=== PATIENT | female | born 1935 | race Caucasian/White ===

== ENCOUNTER → 2017-01-03 | Outpatient (CLI) | payer MEDICARE, BC ==
--- NOTE | 2017-01-03 14:45 | RAD ---
DATE: 01/03/2017 EXAM: DIGITAL SCREEN BILAT W/CAD HISTORY: Routine screening COMPARISON: 12/29/2015 This study was interpreted with the benefit of Computerized Aided Detection (CAD). FINDINGS: Breast Density: HETERO The breast parenchyma Is heterogeneouslyy dense, which could reduce sensitivity of mammography. Breast parenchyma level C. Grouped microcalcifications identified in the right breast best seen on the MLO view just superior to the right retroareolar region. There is a group microtest cases identified in the left upper breast best seen on the MLO view. IMPRESSION: Grouped microcalcifications identified in the right breast and in the left breast. Recommend spot compression magnification views of the right breast and left breast in MLO views. An ML view is recommended. BI-RADS CATEGORY: 0 INCOMPLETE: NEEDS ADDITIONAL IMAGING EVALUATION AND/OR PRIOR MAMMOGRAMS FOR COMPARISON. RECOMMENDED FOLLOW-UP: ADD ADDITIONAL IMAGING PQRS compliance statement: Patient information was entered into a reminder system with a target due date immediate recall for the next mammogram. Mammography is a sensitive method for finding small breast cancers, but it does not detect them all and is not a substitute for careful clinical examination. A negative mammogram does not negate a clinically suspicious finding and should not result in delay in biopsying a clinically suspicious abnormality. "Our facility is accredited by the [employer] Mammography Program."
== END | disposition home or self-care (01) ==
LOC: MAMMO 10:55
PROVIDERS: ATTEND Internal Medicine
DX: Z12.31 Encounter for screening mammogram for malignant neoplasm of breast (principal)
CPT/HCPCS: G0202; 77067

== ENCOUNTER → 2017-01-14 | Outpatient (CLI) | payer MEDICARE, BC ==
--- NOTE | 2017-01-14 09:15 | RAD ---
EXAM: Bilateral lower extremity arterial Doppler. HISTORY: Left lower extremity pain, hypertension, smoking history. COMPARISON: None. FINDINGS: Grayscale and Doppler analysis of the lower extremity deep venous systems was performed. On the right, there are biphasic waveforms throughout. There are no focally elevated velocities. On the left, there are biphasic waveforms throughout. There are no focally elevated velocities. There is a solid-appearing mass within the popliteal fossa on the left measuring 4.6 x 2.3 x 2.2 cm. There is internal flow on Doppler. A feeding vessel appears to arise from the proximal anterior tibial artery. IMPRESSION: 1. A solid-appearing mass in the left popliteal fossa measures 4.6 cm. A soft tissue mass is the primary concern based on this appearance, and is favored over a calcaneal Bethea cyst or an aneurysm. MRI with/without contrast is recommended for further evaluation. MRA series could be included to further define its relationship with the vasculature. 2. Biphasic waveforms throughout both lower extremities suggests mild proximal stenosis.
--- NOTE | 2017-01-14 10:10 | RAD ---
DATE: 01/14/2017. EXAM: DIGITAL DIAGNOSTIC BILATERAL. HISTORY: Bilateral microcalcifications. Additional views are requested. COMPARISON: 01/03/2017. This study was interpreted with the benefit of Computerized Aided Detection (CAD). FINDINGS: The breast parenchyma is heterogeneously dense, which could reduce sensitivity of mammography. Breast parenchyma level C.. On the right, the calcifications of concern appear round/coarse and benign. More superiorly on the right, there is a suggested cluster of small punctate or round calcifications that are not well seen on the CC view and are likely superimposed. Other right-sided calcifications are scattered and appear benign. On the left, there are 2 regions of punctate calcifications just deep to the nipple and lateral to the nipple on the CC view, and superior on the MLO view. These have correlates dating back to at least 2014 given differences in magnification and motion, and benignity is favored. Other round or coarse calcifications appear benign. BI-RADS CATEGORY: 2 BENIGN FINDING(S). RECOMMENDED FOLLOW-UP: 12M 12 MONTH FOLLOW-UP. Ongoing follow-up of punctate left calcifications superolaterally is recommended. PQRS compliance statement: Patient information was entered into a reminder system with a target due date 01/14/2018 for the next mammogram. Mammography is a sensitive method for finding small breast cancers, but it does not detect them all and is not a substitute for careful clinical examination. A negative mammogram does not negate a clinically suspicious finding and should not result in delay in biopsying a clinically suspicious abnormality. "Our facility is accredited by the [employer] Mammography Program."
== END | disposition home or self-care (01) ==
LOC: US 09:33
PROVIDERS: ATTEND Internal Medicine
DX: M79.605 Pain in left leg (principal); R92.1 Mammographic calcification found on diagnostic imaging of breast
CPT/HCPCS: 93925; G0204; 77066

== ENCOUNTER → 2017-01-21 | Outpatient (CLI) | payer MEDICARE, BC ==
[2017-01-21 10:51] LABS: CREATININE 0.6 mg/dL (0.6-1.0); GFR 95.5
== END | disposition home or self-care (01) ==
LOC: MRI 09:44
PROVIDERS: ATTEND Internal Medicine
DX: M79.9 Soft tissue disorder, unspecified (principal)
CPT/HCPCS: 36415; 82565

== ENCOUNTER → 2017-01-24 | Outpatient (CLI) | payer MEDICARE, BC ==
[~2017-01-24] MED LIST: GADOBUTROL 7.5 MMOL/7.5 ML VIAL IV ONE
--- NOTE | 2017-01-24 12:33 | RAD ---
MR of the left knee region with and without contrast HISTORY: Left popliteal mass. TECHNIQUE: Routine multiplanar sequences are obtained before and after intravenous contrast. FINDINGS: There is an enhancing solid soft tissue mass in the popliteal fossa. This is located immediately posterior to the popliteal artery. The upper and lower aspects of the mass appear continuous with the tibial nerve. Mass measures 4.2 cm cephalocaudal by 2.5 cm wide by 2.6 cm AP. This is slightly heterogeneous hyperintense T2 signal and diffuse slightly heterogeneous contrast enhancement. There is anterior displacement of and mass effect upon the popliteal artery which appears narrowed at the level of the mass. Flow void is demonstrated within the popliteal artery. There is a small joint effusion. No evidence of bone lesion or acute fracture. 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 Study was not protocoled for evaluation of intra-articular structures. IMPRESSION: Solid mass in the popliteal fossa. 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 Other etiologies such as sarcoma could be considered but are less likely. This results in mass effect upon and possibly direct involvement of the popliteal artery. Electronically signed by: Arben Mccracken MD (01/24/2017 12:30 PM) [id number]
== END | disposition home or self-care (01) ==
LOC: MRI 15:11
PROVIDERS: ATTEND Internal Medicine
DX: M17.12 Unilateral primary osteoarthritis, left knee (principal); M79.89 Other specified soft tissue disorders; M94.262 Chondromalacia, left knee; M25.462 Effusion, left knee; I10 Essential (primary) hypertension; Z87.891 Personal history of nicotine dependence
CPT/HCPCS: 73723